=== PATIENT | male | born 1970 | race Two or more races ===

== ENCOUNTER 2024-01-04 22:55 | Inpatient (IN) | payer MEDICAID ==
[~2024-01-04] VITALS: Ht 193 cm; Wt 117.9 kg
[2024-01-05] VITALS (27 sets, daily range): BP systolic 99–130; BP diastolic 67–92; PULSE 101–123; RESP 17–32; TEMP 97–99.4
[2024-01-05 00:58] LABS: BASOPHILS % 0.6 % (0.0-2.0); EOSINOPHILS % 0.1 % (0.0-5.0); LYMPHOCYTES % 18.3 % (20.0-50.0); MEAN CORPUSCULAR HEMOGLOBIN 25.5 pg (28.0-32.0); MEAN CORPUSCULAR HGB CONC 31.9 g/dL (31.0-37.0); MEAN CORPUSCULAR VOLUME 80.1 fL (80.0-94.0); MEAN PLATELET VOLUME 8.8 fl (7.4-10.4); MONOCYTES % 7.5 % (2.0-8.0); NEUTROPHILS % 73.5 % (40.0-76.0); PLATELET 241 x1000/uL (130-400); RED BLOOD CELL COUNT 1.91 mill/uL (4.7-6.1); RED CELL DISTRIBUTION WIDTH 29.3 % (11.6-14.6); WHITE BLOOD COUNT 10.2 x1000/uL (4.5-11.0)
[2024-01-05 01:08] LABS: CHLORIDE 106 mEq/L (98-107); SODIUM 137 mEq/L (136-145)
[2024-01-05 01:09] LABS: CARBON DIOXIDE 19 mEq/L (21-32)
[2024-01-05] MEDS: FUROSEMIDE 40MG/4ML VIAL IV ONE (01:09)
[2024-01-05 01:10] LABS: CALCIUM 8.7 mg/dL (8.7-10.4)
[2024-01-05] MEDS: ONDANSETRON HCL 4MG/2ML INJ IV STA (01:10)
[2024-01-05] MEDS: MORPHINE SULFATE 4 MG/ML INJ (FOR IV/IM USE) IV STA (01:10)
[2024-01-05 01:14] LABS: CREATININE 2.2 mg/dL (0.6-1.3); GLUCOSE 133 mg/dL (70-105); UREA NITROGEN BLOOD 31 mg/dL (9-23)
[2024-01-05] MEDS: CEFTRIAXONE 1GM/50ML 50 ML IV ONE (01:15)
[2024-01-05 01:16] LABS: DIFFERENTIAL COMMENT 1
[2024-01-05 02:19] LABS: TROPONIN I HIGH SENSITIVITY 2201 ng/L (3.0-53)
[2024-01-05 02:49] LABS: BASOPHILS % 0.5 % (0.0-2.0); EOSINOPHILS % 0.1 % (0.0-5.0); LYMPHOCYTES % 19.9 % (20.0-50.0); MEAN CORPUSCULAR HEMOGLOBIN 25.1 pg (28.0-32.0); MEAN CORPUSCULAR HGB CONC 31.4 g/dL (31.0-37.0); MEAN PLATELET VOLUME 9.4 fl (7.4-10.4); NEUTROPHILS % 74.5 % (40.0-76.0); PLATELET 248 x1000/uL (130-400); RED BLOOD CELL COUNT 1.93 mill/uL (4.7-6.1); WHITE BLOOD COUNT 9.7 x1000/uL (4.5-11.0)
[2024-01-05 03:03] LABS: ADD RBC MORPHOLOGY YES; DIFFERENTIAL COMMENT 1; HEMATOCRIT. 15.4 % (42.0-52.0); HEMOGLOBIN. 4.9 g/dL (14.0-18.0)
[2024-01-05 03:46] LABS: TROPONIN I HIGH SENSITIVITY 5447 ng/L (3.0-53)
[2024-01-05] MEDS: AZITHROMYCIN 500MG/250ML 250 ML IV ONE (03:46)
[2024-01-05 03:47] LABS: LACTIC ACID 4.6 mmol/L (0.4-2.0)
[2024-01-05] MEDS ORDERED: GUAIFENESIN 200MG/10ML SUGAR FREE UDC PO PRN (05:30)
[2024-01-05] MEDS ORDERED: IPRATROPIUM/ALBUTEROL 0.5-3(2.5)MG/3ML NEB HHN PRN (05:30)
[2024-01-05] MEDS ORDERED: FUROSEMIDE 40MG/4ML VIAL IVP ONE (06:45)
[2024-01-05] MEDS ORDERED: FUROSEMIDE 20MG/2ML VIAL IVP NR (07:00)
[2024-01-05 07:06] LABS: ANISOCYTOSIS 4+
[2024-01-05 07:07] LABS: HYPOCHROMASIA 3+; MICROCYTOSIS 2+; PLATELET ESTIMATE NORMAL; TEAR DROP CELLS 1+
[2024-01-05] MEDS: DIPHENHYDRAMINE 25MG CAPSULE PO SCH (07:08)
[2024-01-05] MEDS: FUROSEMIDE 40MG/4ML VIAL IVP NR (07:13)
[2024-01-05 08:04] LABS: CARBON DIOXIDE 21 mEq/L (21-32); CHLORIDE 106 mEq/L (98-107); POTASSIUM 4.2 mEq/L (3.5-5.1); SODIUM 137 mEq/L (136-145)
[2024-01-05 08:05] LABS: CALCIUM 8.6 mg/dL (8.7-10.4)
[2024-01-05 08:10] LABS: CREATININE 2.4 mg/dL (0.6-1.3); GLUCOSE 137 mg/dL (70-105); TRIGLYCERIDE 50 mg/dL (0-150); UREA NITROGEN BLOOD 36 mg/dL (9-23)
[2024-01-05 08:11] LABS: LDL CHOLESTEROL 37 mg/dL (5-100)
[2024-01-05 08:12] LABS: CHOLESTEROL 61 mg/dL (<200); CREATINE KINASE 449 IU/L (46-171); HDL CHOLESTEROL < 20 mg/dL (>55)
[2024-01-05 08:14] LABS: THYROID STIMULATING HORMONE 2.66 uIU/mL (0.55-4.78)
[2024-01-05 08:53] LABS: T4 FREE 1.08 ng/dL (0.89-1.76)
[2024-01-05] MEDS: FUROSEMIDE 40MG/4ML VIAL IVP SCH (09:00)
[2024-01-05 09:10] LABS: IRON 213 ug/dL (65-175)
[2024-01-05 09:13] LABS: PHOSPHORUS 2.7 mg/dL (2.5-4.9); TOTAL IRON BINDING CAPACITY 225 ug/dl (250-425)
[2024-01-05] MEDS: PANTOPRAZOLE SODIUM 40 MG/VIAL IV SCH (09:30)
[2024-01-05] MEDS: CEFTRIAXONE 1GM/50ML 50 ML IV NR (09:31)
[2024-01-05 10:00] LABS: FOLIC ACID (FOLATE) SERUM 15.16 ng/mL (>5.38); VITAMIN B12 SERUM 1690 pg/mL (211-911)
[2024-01-05 10:33] LABS: CLARITY URINE CLOUDY (CLEAR); COLOR URINE DARK YELLOW (YELLOW); GLUCOSE URINE NEGATIVE (NEGATIVE); KETONES URINE TRACE (NEGATIVE); LEUKOCYTE ESTERASE URINE NEGATIVE (NEGATIVE); NITRITE URINE NEGATIVE (NEGATIVE); OCCULT BLOOD URINE NEGATIVE (NEGATIVE); PH URINE 5.5 (4.5-8.0); PROTEIN URINE TRACE (NEGATIVE); SPECIFIC GRAVITY URINE 1.015 (1.005-1.030)
[2024-01-05 10:34] LABS: BG CARBOXYHEMOGLOBIN 1.4 % (0.5-1.5); BG DEOXYHEMOGLOBIN 0.7 % (0.0-5.0); BG FRACTION INSPIRED OXYGEN 32; BG HCO3 ACT 17.8 mmol/L (22.0-26.0); BG METHEMOGLOBIN 0.1 % (0.0-1.5); BG OXYGEN SATURATION 99.3 % (92.0-98.5); BG OXYHEMOGLOBIN 97.8 % (94.0-97.0); BG PCO2 27.7 mmHg (35.0-45.0); BG PH 7.427 (7.350-7.450); BG PO2 123.1 mmHg (75.0-100.0); BG SAMPLE SITE RIGHT BRACHIAL; BG TOTAL HEMOGLOBIN 5.5 g/dL (12.0-18.0); BG VENT MODE NASAL CANNULA
[2024-01-05 10:50] LABS: HYALINE CASTS URINE 20-30 /lpf
[2024-01-05 10:51] LABS: COARSE GRANULAR CASTS URINE 0-5 /lpf; WHITE BLOOD CELL CASTS URINE 0-5 /lpf
[2024-01-05 10:52] LABS: MUCUS URINE 1+ /lpf (NONE/TRACE)
[2024-01-05 10:53] LABS: RBC URINE 0-2 /hpf (0-2)
[2024-01-05 10:54] LABS: BACTERIA URINE 1+; SQUAMOUS EPITHELIAL CELL URINE FEW /lpf (RARE/1+)
[2024-01-05 11:00] LABS: *AMPHETAMINES SCREEN URINE NEGATIVE (NEGATIVE); *BARBITURATES SCREEN URINE NEGATIVE (NEGATIVE); *BENZODIAZEPINES SCREEN URINE NEGATIVE (NEGATIVE); *COCAINE SCREEN URINE PRESUMPTIVE POSITIVE (NEGATIVE); CANNABINOID URINE SCREEN PRESUMPTIVE POSITIVE (NEGATIVE); ECSTASY MDMA SCREEN URINE NEGATIVE (NEGATIVE); METHADONE URINE SCREEN NEGATIVE (NEGATIVE); OPIATES URINE SCREEN PRESUMPTIVE POSITIVE (NEGATIVE); PHENCYCLIDINE URINE SCREEN NEGATIVE (NEGATIVE)
[2024-01-05 14:40] LABS: MEAN CORPUSCULAR HGB CONC 31.1 g/dL (31.0-37.0); MEAN CORPUSCULAR VOLUME 83.5 fL (80.0-94.0); PLATELET 227 x1000/uL (130-400); RED BLOOD CELL COUNT 1.92 mill/uL (4.7-6.1); RED CELL DISTRIBUTION WIDTH 29.9 % (11.6-14.6); WHITE BLOOD COUNT 9.7 x1000/uL (4.5-11.0)
[2024-01-05 15:12] LABS: TROPONIN I HIGH SENSITIVITY 15711 ng/L (3.0-53)
[2024-01-05] MEDS ORDERED: MORPHINE SULFATE 2 MG/ML INJ (NOT FOR IM USE) IV PRN (18:30)
[2024-01-05] MEDS ORDERED: NITROGLYCERIN 0.4MG TABLET SL SL PRN (18:30)
[2024-01-05 18:31] LABS: HEMATOCRIT 15.8 % (42.0-52.0); HEMOGLOBIN 4.8 g/dL (14.0-18.0)
[2024-01-05] MEDS ORDERED: NALOXONE HCL 0.4MG/ML VIAL IV PRN (18:45)
[2024-01-05] MEDS: ATORVASTATIN CALCIUM 40MG TABLET PO SCH (20:13)
[2024-01-05] MEDS: FUROSEMIDE 20MG/2ML VIAL IVP NR (20:13)
[2024-01-05] MEDS: DIPHENHYDRAMINE 25MG CAPSULE PO NR (20:13)
[2024-01-05] MEDS: ONDANSETRON HCL 4MG/2ML INJ IV PRN (20:16)
[2024-01-05] MEDS: ACETAMINOPHEN 325MG TABLET PO PRN (20:46)
[2024-01-05 21:06] LABS: CLARITY URINE CLEAR (CLEAR); COLOR URINE DARK YELLOW (YELLOW); GLUCOSE URINE TRACE (NEGATIVE); KETONES URINE TRACE (NEGATIVE); LEUKOCYTE ESTERASE URINE TRACE (NEGATIVE); NITRITE URINE NEGATIVE (NEGATIVE); OCCULT BLOOD URINE NEGATIVE (NEGATIVE); PH URINE 5.5 (4.5-8.0); PROTEIN URINE 1+ (NEGATIVE); SPECIFIC GRAVITY URINE 1.016 (1.005-1.030)
[2024-01-05 21:13] LABS: *AMPHETAMINES SCREEN URINE NEGATIVE (NEGATIVE); *BARBITURATES SCREEN URINE NEGATIVE (NEGATIVE); *BENZODIAZEPINES SCREEN URINE NEGATIVE (NEGATIVE); *COCAINE SCREEN URINE PRESUMPTIVE POSITIVE (NEGATIVE); CANNABINOID URINE SCREEN PRESUMPTIVE POSITIVE (NEGATIVE); ECSTASY MDMA SCREEN URINE NEGATIVE (NEGATIVE); METHADONE URINE SCREEN NEGATIVE (NEGATIVE); OPIATES URINE SCREEN PRESUMPTIVE POSITIVE (NEGATIVE); PHENCYCLIDINE URINE SCREEN NEGATIVE (NEGATIVE)
[2024-01-05 21:49] LABS: BACTERIA URINE 1+; SQUAMOUS EPITHELIAL CELL URINE FEW /lpf (RARE/1+)
[2024-01-05 21:50] LABS: RBC URINE 0-2 /hpf (0-2)
[2024-01-05 21:53] LABS: COARSE GRANULAR CASTS URINE 0-5 /lpf; MUCUS URINE 1+ /lpf (NONE/TRACE); WHITE BLOOD CELL CASTS URINE 0-5 /lpf
[2024-01-05 23:52] LABS: TROPONIN I HIGH SENSITIVITY 15319 ng/L (3.0-53)
[2024-01-06] VITALS (30 sets, daily range): BP systolic 100–125; BP diastolic 49–95; PULSE 104–130; RESP 17–29; TEMP 98–100.8
[2024-01-06 04:26] LABS: INR 1.5; PROTHROMBIN TIME 16.6 sec (9.6-11.0)
[2024-01-06 04:32] LABS: BASOPHILS % 0.4 % (0.0-2.0); DIFFERENTIAL COMMENT 1; EOSINOPHILS % 0.2 % (0.0-5.0); LYMPHOCYTES % 21.4 % (20.0-50.0); MEAN CORPUSCULAR HEMOGLOBIN 26.9 pg (28.0-32.0); MEAN CORPUSCULAR HGB CONC 32.7 g/dL (31.0-37.0); MEAN CORPUSCULAR VOLUME 82.2 fL (80.0-94.0); MEAN PLATELET VOLUME 9.5 fl (7.4-10.4); MONOCYTES % 6.6 % (2.0-8.0); NEUTROPHILS % 71.4 % (40.0-76.0); PLATELET 212 x1000/uL (130-400); RED CELL DISTRIBUTION WIDTH 25.7 % (11.6-14.6); WHITE BLOOD COUNT 9.7 x1000/uL (4.5-11.0)
[2024-01-06 04:34] LABS: HEMATOCRIT. 19.7 % (42.0-52.0); HEMOGLOBIN. 6.4 g/dL (14.0-18.0)
[2024-01-06 04:38] LABS: CHLORIDE 106 mEq/L (98-107); POTASSIUM 4.2 mEq/L (3.5-5.1); SODIUM 135 mEq/L (136-145)
[2024-01-06 04:39] LABS: CALCIUM 8.4 mg/dL (8.7-10.4); CARBON DIOXIDE 21 mEq/L (21-32)
[2024-01-06 04:43] LABS: IRON 152 ug/dL (65-175)
[2024-01-06 04:44] LABS: CREATININE 2.7 mg/dL (0.6-1.3); GLUCOSE 132 mg/dL (70-105); UREA NITROGEN BLOOD 42 mg/dL (9-23)
[2024-01-06] MEDS ORDERED: DIPHENHYDRAMINE 25MG CAPSULE PO NR (04:45)
[2024-01-06 04:46] LABS: TOTAL IRON BINDING CAPACITY 228 ug/dl (250-425)
[2024-01-06] MEDS: DIPHENHYDRAMINE 25MG CAPSULE PO NR (05:12)
[2024-01-06] MEDS: CEFTRIAXONE 1GM/50ML 50 ML IV SCH (10:37)
[2024-01-06 10:51] LABS: HEMATOCRIT 22.3 % (42.0-52.0); HEMOGLOBIN 7.4 g/dL (14.0-18.0)
[2024-01-06] MEDS ORDERED: CEFEPIME 1GM IN DEXT 5% 50ML IV SCH (16:00)
[2024-01-06] MEDS: CEFEPIME 1GM/50ML 50 ML IV SCH (17:36)
[2024-01-06] MEDS ORDERED: ISOS120T13 PO (17:50)
[2024-01-06] MEDS ORDERED: AMLO10TA80 PO (17:50)
[2024-01-06] MEDS ORDERED: ALPR-341 MT (17:50)
[2024-01-06] MEDS ORDERED: ARIP10TA56 PO (17:50)
[2024-01-06] MEDS ORDERED: ATOR-2 PO (17:50)
[2024-01-06] MEDS ORDERED: CARV12.545 PO (17:50)
[2024-01-06] MEDS ORDERED: EZET10TA81 PO (17:50)
[2024-01-06] MEDS ORDERED: HYDR-459 PO (17:50)
[2024-01-06] MEDS ORDERED: CLOP75TA33 PO (17:50)
[2024-01-06] MEDS ORDERED: PREG75CA PO (17:50)
[2024-01-06] MEDS ORDERED: LISI-648 PO (17:50)
[2024-01-06] MEDS ORDERED: RIVA10TA MT (17:50)
[2024-01-06] MEDS: ACETAMINOPHEN 325MG TABLET PO PRN (20:37)
[2024-01-07] VITALS (29 sets, daily range): BP systolic 93–118; BP diastolic 55–84; PULSE 99–124; RESP 13–25; TEMP 96.8–99.7
[2024-01-07] MEDS: FUROSEMIDE 20MG/2ML VIAL IVP NR (03:59)
[2024-01-07] MEDS: DIPHENHYDRAMINE 25MG CAPSULE PO NR (04:00)
[2024-01-07 09:22] LABS: PLATELET 152 x1000/uL (130-400); WHITE BLOOD COUNT 6.8 x1000/uL (4.5-11.0)
[2024-01-07 09:30] LABS: BASOPHILS % 0.5 % (0.0-2.0); EOSINOPHILS % 0.3 % (0.0-5.0); HEMATOCRIT. 24.3 % (42.0-52.0); HEMOGLOBIN. 8.1 g/dL (14.0-18.0); LYMPHOCYTES % 26.3 % (20.0-50.0); MEAN CORPUSCULAR HEMOGLOBIN 27.9 pg (28.0-32.0); MEAN CORPUSCULAR HGB CONC 33.5 g/dL (31.0-37.0); MEAN CORPUSCULAR VOLUME 83.5 fL (80.0-94.0); MEAN PLATELET VOLUME 8.7 fl (7.4-10.4); NEUTROPHILS % 62.9 % (40.0-76.0); RED CELL DISTRIBUTION WIDTH 22.9 % (11.6-14.6)
[2024-01-07 09:33] LABS: INR 1.5; POTASSIUM 3.7 mEq/L (3.5-5.1); PROTHROMBIN TIME 15.8 sec (9.6-11.0)
[2024-01-07 09:34] LABS: CALCIUM 8.3 mg/dL (8.7-10.4)
[2024-01-07 09:38] LABS: DIFFERENTIAL COMMENT 1
[2024-01-07 09:41] LABS: ADD RBC MORPHOLOGY YES
[2024-01-07 09:47] LABS: CREATININE 1.6 mg/dL (0.6-1.3)
[2024-01-07] MEDS ORDERED: CEFTRIAXONE 1GM/50ML 50 ML IV SCH (10:00)
[2024-01-07 12:37] LABS: ANISOCYTOSIS 2+; PLATELET ESTIMATE NORMAL
[2024-01-07 12:38] LABS: MICROCYTOSIS 1+
[2024-01-07 12:39] LABS: HYPOCHROMASIA 1+
[2024-01-07] MEDS: CEFEPIME 2GM/100ML 100 ML IV SCH (13:37)
[2024-01-08] VITALS: BP 112/77; PULSE 116; RESP 19; TEMP 97.3
[2024-01-08 04:00] VITALS: BP 108/75; PULSE 123; RESP 20; TEMP 98.2
[2024-01-08 06:53] LABS: BASOPHILS % 0.3 % (0.0-2.0); EOSINOPHILS % 0.3 % (0.0-5.0); HEMATOCRIT. 23.4 % (42.0-52.0); HEMOGLOBIN. 7.9 g/dL (14.0-18.0); LYMPHOCYTES % 31.4 % (20.0-50.0); MEAN CORPUSCULAR HEMOGLOBIN 27.7 pg (28.0-32.0); MEAN CORPUSCULAR HGB CONC 33.9 g/dL (31.0-37.0); MEAN CORPUSCULAR VOLUME 81.8 fL (80.0-94.0); MEAN PLATELET VOLUME 8.8 fl (7.4-10.4); MONOCYTES % 13.5 % (2.0-8.0); NEUTROPHILS % 54.5 % (40.0-76.0); PLATELET 142 x1000/uL (130-400); RED BLOOD CELL COUNT 2.86 mill/uL (4.7-6.1); RED CELL DISTRIBUTION WIDTH 23.9 % (11.6-14.6); WHITE BLOOD COUNT 6.6 x1000/uL (4.5-11.0)
[2024-01-08 07:00] LABS: DIFFERENTIAL COMMENT 1
[2024-01-08 07:04] LABS: POTASSIUM 3.6 mEq/L (3.5-5.1)
[2024-01-08 07:05] LABS: CALCIUM 7.9 mg/dL (8.7-10.4)
[2024-01-08 07:10] LABS: CREATININE 1.4 mg/dL (0.6-1.3)
[2024-01-08 08:00] VITALS: BP 110/79; PULSE 97; RESP 20; TEMP 98.4
[2024-01-08] MEDS ORDERED: FAMOTIDINE 20MG/2ML VIAL IV SCH (09:00)
[2024-01-08 12:00] VITALS: BP 115/78; PULSE 95; RESP 18; TEMP 98.5
[2024-01-08 14:27] VITALS: BP 115/78; PULSE 95; TEMP 98.5; O2SAT 97
[2024-01-11 07:50] LABS: HEMOGLOBIN. 4.9 g/dL (14.0-18.0)
[2024-01-11 07:54] LABS: HEMATOCRIT. 15.3 % (42.0-52.0)
== END 2024-01-08 16:03 | disposition home or self-care (01) | DRG 720 ==
LOC: ER 22:55 → CVICU 01-05 01:39 → EDBEDREQSVC 01-05 01:50 → 7WST 01-07 11:51
PROVIDERS: ADMIT Hospitalist; ATTEND Hospitalist
PROC: 30233N1 Transfusion of Nonautologous Red Blood Cells into Peripheral Vein, Percutaneous Approach (ICD-10-PCS; principal; 2024-01-05)
DX: A41.9 Sepsis, unspecified organism (principal); J96.01 Acute respiratory failure with hypoxia; N17.0 Acute kidney failure with tubular necrosis; I21.A1 Myocardial infarction type 2; J18.9 Pneumonia, unspecified organism; I13.0 Hypertensive heart and chronic kidney disease with heart failure and stage 1 through stage 4 chronic kidney disease, or unspecified chronic kidney disease; D68.59 Other primary thrombophilia; D62 Acute posthemorrhagic anemia; D63.8 Anemia in other chronic diseases classified elsewhere; I50.9 Heart failure, unspecified; N18.9 Chronic kidney disease, unspecified; F12.10 Cannabis abuse, uncomplicated; F14.90 Cocaine use, unspecified, uncomplicated; F17.210 Nicotine dependence, cigarettes, uncomplicated; J45.909 Unspecified asthma, uncomplicated; K76.0 Fatty (change of) liver, not elsewhere classified; E78.5 Hyperlipidemia, unspecified; I25.10 Atherosclerotic heart disease of native coronary artery without angina pectoris; Z95.5 Presence of coronary angioplasty implant and graft; Z79.01 Long term (current) use of anticoagulants; Z86.718 Personal history of other venous thrombosis and embolism
CPT/HCPCS: 36415; 36600; 71045; 74176; 76700; 80048; 80061; 80305; 81003; 82270; 82375; 82550; 82607; 82728; 82746; 82805; 83036; 83540; 83550; 83605; 83735; 83880; 84100; 84145; 84439; 84443; 84484; 85014; 85018; 85025; 85027; 85044; 85379; 86078; 86850; 86900; 86920; 93005; 93306; 93970; 99291; C1893; J0456; J0692; J0696; J1940; J2270; J2405; J2470; P9016; Q0163